=== PATIENT | male | born 1995 | race Two or more races ===

== ENCOUNTER 2025-01-01 15:59 | Inpatient (IN) | payer MEDICAID ==
[~2025-01-01] VITALS: Ht 175.3 cm; Wt 101.1 kg
[2025-01-01 16:48] LABS: Basophils # (auto) 0 10 ^3/uL (0-0.2); Basophils % (auto) 0.3 % (0.0-2.0); Eosinophils # (auto) 0.1 10 ^3/uL (0-0.8); Eosinophils % (auto) 0.9 % (0.0-7.0); Hematocrit 44.1 % (41.0-53.0); Hemoglobin 15.3 g/dL (13.5-17.5); Lymphocytes % (auto) 17.9 % (10.0-50.0); Mean Corpuscular Hgb Conc. 34.7 g/dL (32.0-36.0); Mean Corpuscular Volume 83.5 fL (80.0-100.0); Monocytes # (auto) 0.3 10 ^3/uL (0-1.3); Monocytes % (auto) 2.4 % (0.0-12.0); Neutrophils # (auto) 8.9 10 ^3/uL (1.6-8.6); Neutrophils % (auto) 78.5 % (37.0-80.0); Nucleated Red Blood Cells % 0.1 %; Platelet Count (auto) 364 10^3/uL (140-450); Red Blood Cells 5.28 10^6/uL (4.5-5.90); Red Cell Distribution Width 13.2 % (11.8-14.3); White Blood Cell 11.3 10^3/uL (4.4-10.8)
[2025-01-01 16:54] LABS: Chloride 105 mmol/L (98-107); Potassium 4.1 mmol/L (3.5-5.1); Sodium 141 mmol/L (136-145)
[2025-01-01 16:55] LABS: Anion Gap 11 (5-15); Carbon Dioxide 25 mmol/L (20-31)
[2025-01-01 16:56] LABS: Calcium 10.4 mg/dL (8.7-10.4)
[2025-01-01] MEDS: HYDROcodone-ACET 10/325MG TAB PO ONE (16:56)
[2025-01-01] MEDS: KETOROLAC TROMETH 60MG/2ML VIAL IM ONE (16:57)
--- NOTE | 2025-01-01 16:57 | ED.PDOC ---
General HPI Comments 29 year old male presents to the ED with a chief complaint of RT flank pain onset 1 day. Patient states he began expereincing RT flank pain as well as nausea, vomiting for the past day. PMHx kidney stones. Denies chest pain, shortness of breath, fever, chills, hematemesis, dysuria, hematuria. No other symptoms or modifying factors present at this time. Patient was hypertensive at arrival. Chief Complaint: Flank Pain Time Seen by MD: 16:45 Primary Care Provider: NONE Reviewed notes: Nurses Notes, Medications, Allergies Allergies: Coded Allergies: NO KNOWN ALLERGIES (Unverified , 07/09/15) Information Source: Patient Mode of Arrival: Ambulatory Severity: Moderate Timing: Days Duration: Since onset Prehospital treatment: None Onset: Spontaneous History of: Kidney stone Location: Abdomen, (R) Flank Penile discharge: None Modifying factors: None associated signs and symptoms: Nausea, Vomiting, Flank Pain Past Medical History PAST MEDICAL HISTORY: Kidney Stones Surgical History: Denies all surgeries Family History Family History: Reviewed,noncontributory to illness, No family hx of Cancer, No family hx of DM, No family hx of Heart jami, No family hx of HTN, No family hx ofKidney jami, No family hx of Liver jami, No family hx of Lung jami, No family hx of Stroke Social History Smoker: Non-Smoker Alcohol: Denies ETOH Use Drugs: Denies Drug Use Lives In: Home Constitutional: denies: chills, diaphoresis, fatigue, fever, malaise, sweats, weakness, others EENTM: denies: blurred vision, double vision, ear bleeding, ear discharge, ear drainage, ear pain, ear ringing, eye pain, eye redness, hearing loss, mouth pain, mouth swelling, nasal discharge, nose bleeding, nose congestion, nose pain, photophobia, tearing, throat pain, throat swelling, voice changes, others Respiratory: denies: cough, hemoptysis, orthopnea, SOB at rest, shortness of breath, SOB with excertion, stridor, wheezing, others Cardiovascular: denies: chest pain, dizzy spells, diaphoresis, Dyspnea on exertion, edema, irregular heart beat, left arm pain, lightheadedness, palpitations, PND, syncope, others Gastrointestinal: reports: abdominal pain, nausea, vomiting; denies: abdomen distended, blood streaked bowels, constipated, diarrhea, dysphagia, difficulty swallowing, hematemesis, melena, poor appetite, poor fluid intake, rectal bleeding, rectal pain, others Genitourinary: reports: flank pain; denies: burning, dysuria, frequency, hematuria, incontinence, penile discharge, penile sore, pain, testicle pain, testicle swelling, urgency, others Neurological: denies: dizziness, fainting, headache, left sided numbness, left sided weakness, numbness, paresthesia, pre-existing deficit, right sided numbness, right sided weakness, seizure, speech problems, tingling, tremors, weakness, others Musculoskeletal: denies: back pain, gout, joint pain, joint swelling, muscle pain, muscle stiffness, neck pain, others Integumetry: denies: bruises, change in color, change in hair/nails, dryness, laceration, lesions, lumps, rash, wounds, others Allergic/Immunocompromised: denies: Difficulty Healing, Frequent Infections, Hives, Itching, others Hematologic/Lymphatic: denies: anemia, blood clots, easy bleeding, easy bruising, swollen glands, others Endocrine: denies: excessive hunger, excessive sweating, excessive thirst, excessive urination, flushing, intolerance to cold, intolerance to heat, unexplained weight gain, unexplained weight loss, others Psychiatric: denies: anxiety, bipolar disorder, depression, hopeless, panic disorder, schizophrenia, sleepless, suicidal, others All Other Systems: Reviewed and Negative Physical Exam General Appearance: Moderate Distress (Patient was in moderate distress at time of evaluation due to right-sided flank and abdominal pain concerns.), Normal HEENT: Normal ENT Inspection, Pharynx Normal, TMs Normal Neck: Full Range of Motion, Non-Tender, Normal, Normal Inspection Respiratory: Chest Non-Tender, Lungs Clear, No Accessory Muscle Use, No Respiratory Distress, Normal Breath Sounds Cardiovascular: No Edema, No JVD, No Murmur, No Gallop, Normal Peripheral Pulses, Regular Rate/Rhythm Breast Exam: Deferred Gastrointestinal: No Pulsatile Mass, Normal Bowel Sounds, Other (Right-sided flank pain extending into the right lower abdomen. No additional pain on palpation. No signs of trauma.) Genitalia: Deferred Pelvic: Deferred Rectal: Deferred Extremities: No calf tenderness, Normal capillary refill, Normal inspection, Normal range of motion, Non-tender, No pedal edema Musculoskeletal : Apperance: Normal Neurologic: Alert, No Motor Deficits, Normal Affect, Normal Mood, No Sensory Deficits Cerebellar Function: Normal Reflexes: Normal Skin: Dry, Normal Color, Warm Lymphatic: No Adenopathy Was a procedure done? Was a procedure done?: No Differential Diagnosis Kidney stone (Female): Other (Cholelithiasis, occlusive kidney stone, kidney stone, UTI, pyelonephritis, musculoskeletal strain) X-Ray, Labs, Meds, VS Vital Signs Date Time Temp Pulse Resp B/P (MAP) Pulse Ox O2 Delivery O2 Flow Rate FiO2 01/01/25 17:04 74 19 96 Room Air* 0 21 01/01/25 16:18 97.9 94 19 168/126 (140) 100 97.9 Lab Test 01/01/25 17:00 01/01/25 16:32 Range/Units Urine Color Yellow Yellow Urine Clarity Clear Clear Urine pH 5.5 5.0-9.0 Urine Specific [place] 1.021 1.001-1.035 Urine Protein Trace H Negative Urine Ketones Trace Negative Urine Blood 3+ H Negative /uL Urine Nitrite Negative Negative Urine Bilirubin Negative Negative Urine Urobilinogen Normal Negative mg/dL Urine Leukocyte Esterase Negative Negative /uL Urine RBC 486 0 - 3 /hpf Urine Microscopic WBC 4 H 0-3 /HPF Urine Squamous Epithelial Cells Few <5 /hpf Urine Bacteria None seen None Seen /hpf Urine Mucus Few None Seen Urine Glucose Normal Normal mg/dL White Blood Count 11.3 H 4.4-10.8 10^3/uL Red Blood Count 5.28 4.5-5.90 10^6/uL Hemoglobin 15.3 13.5-17.5 g/dL Hematocrit 44.1 41.0-53.0 % Mean Corpuscular Volume 83.5 80.0-100.0 fL Mean Corpuscular Hemoglobin 29.0 28.0-32.0 pg Mean Corpuscular Hemoglobin Concent 34.7 32.0-36.0 g/dL Red Cell Distribution Width 13.2 11.8-14.3 % Platelet Count 364 140-450 10^3/uL Mean Platelet Volume 7.0 6.9-10.8 fL Neutrophils (%) (Auto) 78.5 37.0-80.0 % Lymphocytes (%) (Auto) 17.9 10.0-50.0 % Monocytes (%) (Auto) 2.4 0.0-12.0 % Eosinophils (%) (Auto) 0.9 0.0-7.0 % Basophils (%) (Auto) 0.3 0.0-2.0 % Neutrophils # (Auto) 8.9 H 1.6-8.6 10 ^3/uL Lymphocytes # (Auto) 2.0 0.4-5.4 10 ^3/uL Monocytes # (Auto) 0.3 0-1.3 10 ^3/uL Eosinophils # (Auto) 0.1 0-0.8 10 ^3/uL Basophils # (Auto) 0 0-0.2 10 ^3/uL Nucleated Red Blood Cells 0.1 % Sodium Level 141 136-145 mmol/L Potassium Level 4.1 3.5-5.1 mmol/L Chloride Level 105 98-107 mmol/L Carbon Dioxide Level 25 20-31 mmol/L Anion Gap 11 5-15 Blood Urea Nitrogen 15 9-23 mg/dL Creatinine 1.25 0.700-1.30 mg/dL Glomerular Filtration Rate Calc 80 >90 mL/min BUN/Creatinine Ratio 12.0 10.0-20.0 Serum Glucose 146 H 74-106 mg/dL Calcium Level 10.4 8.7-10.4 mg/dL Current Medications Medications (Trade) Dose Ordered Sig/Vic Route Start Time Stop Time Status Last Admin Ketorolac Tromethamine (Toradol Injection) 30 mg ONCE ONCE IM 01/01/25 16:15 01/01/25 16:16 DC 01/01/25 16:57 Acetaminophen/ Hydrocodone Bitart (Dickens 10/325MG Tab) 1 tab ONCE ONCE PO 01/01/25 16:15 01/01/25 16:16 DC 01/01/25 16:56 X-Ray, Labs, Meds, VS Comment All studies performed the ED were evaluated by me personally. Urinalysis was unremarkable for any urinary tract infection signs, but had a significant RBC deposition. CT of the abdomen and pelvis revealed a djoc-pv-arjfyvci right hydronephrosis and hydroureter with an obstructing calculi at the right ureterovesicular junction measuring up to 4 mm. Patient will be admitted for pain management as well as urology consultation. Time of 1ST Reevaluation: 17:29 Reevaluation 1ST: Improved Consultation: PCP, Urology Patient Education/Counseling: Diagnosis, Treatment, Prognosis Family Education/Counseling: Diagnosis, Treatment, No Family Present Additional Information [place] [address] Ph: [phone] DIAGNOSTIC IMAGING Diagnostic Imaging Report : [id number] Signed PATIENT: RENETTA MIRANDA JR ACCT: [id number] UNIT: [id number] : 1995 LOC: ER ROOM / BED: / AGE / SEX: 29 / M ADM STATUS: REG ER SERVICE [id number] ORDERING PHYSICIAN: YONAS BRAN PAC PROCEDURE(s): ABPL - CT AB PEL WO CON-NO ORAL OR IV REASON: Right-sided flank/abdominal pain ORDER NUMBER(s): [id number], ACCESSION NUMBER(s): [id number] Exam: CT CT AB PEL WO CON-NO ORAL OR IV History: Right-sided flank/abdominal pain Comparison Study: None Technique: Multidetector spiral CT of the abdomen and pelvis was performed fro m lung bases to pubic symphysis. Imaging was performed without IV contrast. Axial, coronal and sagittal multiplanar reformats were obtained from the axial data set by the technologist. Radiation dose : Abdomen/Pelvis: CTDIvol 13 mGy, DLP 668 mGy*cm. Findings: Evaluation of solid organs is limited due to lack of intravenous contrast use. Lung Bases: No acute or significant lung base finding. Normal heart size. No pleural or pericardial effusion. Liver: The liver is normal in size. No focal lesions. Gallbladder and biliary Tree: Unremarkable Spleen: Unremarkable Pancreas: The pancreas is grossly normal in appearance. Adrenal Glands: Unremarkable Kidneys: Lofs-tj-bumxjlfq right hydronephrosis and hydroureter with an obstructing calculus at the right ureterovesicular junction measuring up to 4 mm. Other nonobstructing right renal calculus measuring up to 4 mm. Punctate left renal calculus. No left hydronephrosis. Bladder: Grossly unremarkable for degree of distention. Bowel: The stomach is grossly normal in appearance. Small bowel and colon are normal in caliber and distribution. Normal appendix is visualized in the right lower quadrant without findings of appendicitis. Ascites: Absent Lymphadenopathy: No mesenteric, retroperitoneal or periportal lymphadenopathy. Abdominal wall and Mesentery: Unremarkable. Vasculature: The visualized abdominal aorta is normal in size and caliber. Evaluation of abdominal and pelvic vessels is limited due to lack of intravenous contrast. Pelvic Organs: Unremarkable Musculoskeletal: No aggressive focal bony lesions, acute fractures or dislocation. IMPRESSION: 1. Vwbb-gw-zkhkvygz right hydronephrosis and hydroureter with an obstructing calculus at the right ureterovesicular junction measuring up to 4 mm. Other nonobstructive right renal calculus. Punctate nonobstructing left renal calculus. Urology evaluation is recommended. Radiation optimization: All CT scans at this facility use at least one of these dose optimization techniques: Automated exposure control mA and/or kV adjustment per patient size (includes targeted exams where dose is matched to clinical indication) or iterative reconstruction. HS:Y ATED BY: ALVARO GAN MD DICTATED DATE/TIME: 01/01/251701 SIGNED BY: ALVARO GAN MD SIGNED DATE/TIME: 01/01/251701 CC: Departure 1 Departure Time of Disposition: 17:29 Impression: Primary Impression: Kidney stone Additional Impression: Hydronephrosis concurrent with and due to calculi of kidney and ureter Disposition: ADMITTED INPATIENT Condition: Stable Discharged With: Self, Spouse Critical Care Note Critical Care Time?: No Stability Stability form required: No Heart Score Heart Score: Heart Score Response (Comments) Value History N/A 0 EKG N/A 0 Age N/A 0 Risk Factors N/A 0 Troponin N/A 0 Total 0 I personally scribed for YONAS BRAN PAC ([email or web address]) on 01/01/25 at 16:57. Elect ronically submitted by Bethanie Roman ([email or web address]). I personally scribed for YONAS BRAN PAC ([email or web address]) on 01/01/25 at 17:12. Electronically submitted by Bethanie Roman ([email or web address]). YONAS BRAN PAC January 01, 2025 16:57
[2025-01-01 17:00] LABS: Blood Urea Nitrogen 15 mg/dL (9-23)
[2025-01-01 17:01] LABS: Glucose 146 mg/dL (74-106)
[2025-01-01 17:03] LABS: Urine Bacteria None Seen /hpf (None Seen)
[2025-01-01 17:04] VITALS: PULSE 74; RESP 19; O2SAT 96
--- NOTE | 2025-01-01 17:04 | DVH ---
Exam: CT CT AB PEL WO CON-NO ORAL OR IV History: Right-sided flank/abdominal pain Comparison Study: None Technique: Multidetector spiral CT of the abdomen and pelvis was performed from lung bases to pubic symphysis. Imaging was performed without IV contrast. Axial, coronal and sagittal multiplanar reform ats were obtained from the axial data set by the technologist. Radiation dose : Abdomen/Pelvis: CTDIvol 13 mGy, DLP 668 mGy*cm. Findings: Evaluation of solid organs is limited due to lack of intravenous contrast use. Lung Bases: No acute or significant lung base finding. Normal heart size. No pleural or pericardial effusion. Liver: The liver is normal in size. No focal lesions. Gallbladder and biliary Tree: Unremarkable Spleen: Unremarkable Pancreas: The pancreas is grossly normal in appearance. Adrenal Glands: Unremarkable Kidneys: Rchl-mc-vzggrbcp right hydronephrosis and hydroureter with an obstructing calculus at the ri ght ureterovesicular junction measuring up to 4 mm. Other nonobstructing right renal calculus measur ing up to 4 mm. Punctate left renal calculus. No left hydronephrosis. Bladder: Grossly unremarkable for degree of distention. Bowel: The stomach is grossly normal in appearance. Small bowel and colon are normal in caliber and d istribution. Normal appendix is visualized in the right lower quadrant without findings of appendicit is. Ascites: Absent Lymphadenopathy: No mesenteric, retroperitoneal or periportal lymphadenopathy. Abdominal wall and Mesentery: Unremarkable. Vasculature: The visualized abdominal aorta is normal in size and caliber. Evaluation of abdominal a nd pelvic vessels is limited due to lack of intravenous contrast. Pelvic Organs: Unremarkable Musculoskeletal: No aggressive focal bony lesions, acute fractures or dislocation. IMPRESSION: 1. Dfaj-cr-fcmznzsq right hydronephrosis and hydroureter with an obstructing calculus at the right ur eterovesicular junction measuring up to 4 mm. Other nonobstructive right renal calculus. Punctate no nobstructing left renal calculus. Urology evaluation is recommended. Radiation optimization: All CT scans at this facility use at least one of these dose optimization julieth hniques: Automated exposure control mA and/or kV adjustment per patient size (includes targeted exams where dose is matched to clinical indication) or iterative reconstruction. HS:Y
[2025-01-01 17:13] LABS: Urine Blood 3+ /uL (Negative); Urine Clarity Clear (Clear); Urine Color Yellow (Yellow); Urine Mucus FEW (None Seen); Urine Protein, UAD TRACE (Negative); Urine Specific Gravity 1.021 (1.001-1.035); Urine Squamous Epithelial Cell FEW /hpf (<5); Urine Urobilinogen Normal (Negative); Urine WBC 4 /HPF (0-3); Urine pH 5.5 (5.0-9.0)
[2025-01-01] MEDS: cloNIDine HCL 0.1 MG TAB PO ONE (17:30)
[2025-01-01] MEDS ORDERED: NITROGLYCERIN 0.4 MG SL TAB SL PRN (22:30)
[2025-01-01] MEDS ORDERED: MORPHINE SULFATE INJ 2 MG/ml SYRG IV PRN ×2 (22:30)
--- NOTE | 2025-01-01 22:58 | DVHHPRES ---
History of Present Illness Resident Creating Document: YING DAWN Reason for Visit: right flank pain History of Present Illness 29 year old male patient with no past medical history who presented to the emergency department with the chief complain of right flank pain that started today at 3 pm, progressively getting worse , the pain was described as stabbing pain that irradiates to the groin , very severe 10/10 and constant . He denied any other associated symptoms such as fever, diarrhea, chest pain or vomiting.Mc harsh and Omalley signs were negative. PMH: no past medical history PCP: Patient doesn't have a PCP social history: he has history of vaping but denies smoking cigarettes,he drinks alcohol ocassionally. denies using drugs. code status: full code medications at home: none CT abdomen showed: Yirf-lb-opatkged right hydronephrosis and hydroureter with an obstructing calculus at the right ureterovesical junction measuring up to 4 mm. Other nonobstructive right renal calculus. Punctate nonobstructing left renal calculus. Urology evaluation is recommended. Smoke: No ALCOHOL: none Drugs: None Lives: with Family Domestic Violence: Neg Review of Systems Review of Systems Constitutional: denies: chills, diaphoresis, fatigue, fever, malaise, sweats, weakness, others Respiratory: denies: cough, hemoptysis, orthopnea, SOB at rest, shortness of breath, SOB with excertion, stridor, wheezing, others Cardiovascular: denies: chest pain, dizzy spells, diaphoresis, Dyspnea on exertion, edema, irregular heart beat, left arm pain, lightheadedness Gastrointestinal: reports: abdominal pain, nausea, vomiting; denies: abdomen distended, blood streaked bowels, constipated, diarrhea, dysphagia, difficulty swallowing, hematemesis Genitourinary: reports: RIGHT SIDED FLANK PAIN; denies: burning, dysuria, frequency, hematuria, incontinence, penile discharge, penile sore, pain, testicle pain, testicle swelling, urgency, others Neurological: denies: dizziness, fainting, headache, left sided numbness, left sided weakness, numbness, paresthesia, pre-existing deficit, right sided numbness, right sided weakness Musculoskeletal: denies: back pain, gout, joint pain, joint swelling, muscle pain, muscle stiffness, neck pain, others Allergies: Coded Allergies: NO KNOWN ALLERGIES (Unverified , 07/09/15) Medications Current Medications Medications Dose Ordered Sig/Vic Route Start Time Stop Time Status Last Admin Dose Admin Sodium Chloride 1,000 ml @ 120 mls/hr Q8H20M IV 01/01/25 22:30 Morphine Sulfate 2 mg Q4HPRN PRN IV 01/01/25 22:30 Nitroglycerin 0.4 mg Q5MINP PRN SL 01/01/25 22:30 Morphine Sulfate 2 mg Q30M PRN IV 01/01/25 22:30 Exam Vital Signs Vital Signs Date Time Temp Pulse Resp B/P (MAP) Pulse Ox O2 Delivery O2 Flow Rate FiO2 01/01/25 20:14 98.6 67 18 141/93 (109) 97 98.6 01/01/25 17:04 Room Air* 0 21 Exam General Appearance: Moderate Distress due to right sided flank pain HEENT: Normal ENT Inspection, Pharynx Normal, TMs Normal Neck: Full Range of Motion, Non-Tender, Normal, Normal Inspection Respiratory: Chest Non-Tender, Lungs Clear, No Accessory Muscle Use, No Respiratory Distress, Normal Breath Sounds Cardiovascular: No Edema, No JVD, No Murmur, No Gallop, Normal Peripheral Puls es, Regular Rate/Rhythm Gastrointestinal: No Pulsatile Mass, Normal Bowel Sounds, Other (Right-sided flank pain extending into the right lower abdomen. No additional pain on palpation Extremities: No calf tenderness, Normal capillary refill, Normal inspection, Normal range of motion, Non-tender, No pedal edema Labs/Xrays Labs Test 01/01/25 17:00 01/01/25 16:32 Range/Units Urine Color Yellow Yellow Urine Clarity Clear Clear Urine pH 5.5 5.0-9.0 Urine Specific [place] 1.021 1.001-1.035 Urine Protein Trace H Negative Urine Ketones Trace Negative Urine Blood 3+ H Negative /uL Urine Nitrite Negative Negative Urine Bilirubin Negative Negative Urine Urobilinogen Normal Negative mg/dL Urine Leukocyte Esterase Negative Negative /uL Urine RBC 486 0 - 3 /hpf Urine Microscopic WBC 4 H 0-3 /HPF Urine Squamous Epithelial Cells Few <5 /hpf Urine Bacteria None seen None Seen /hpf Urine Mucus Few None Seen Urine Glucose Normal Normal mg/dL White Blood Count 11.3 H 4.4-10.8 10^3/uL Red Blood Count 5.28 4.5-5.90 10^6/uL Hemoglobin 15.3 13.5-17.5 g/dL Hematocrit 44.1 41.0-53.0 % Mean Corpuscular Volume 83.5 80.0-100.0 fL Mean Corpuscular Hemoglobin 29.0 28.0-32.0 pg Mean Corpuscular Hemoglobin Concent 34.7 32.0-36.0 g/dL Red Cell Distribution Width 13.2 11.8-14.3 % Platelet Count 364 140-450 10^3/uL Mean Platelet Volume 7.0 6.9-10.8 fL Neutrophils (%) (Auto) 78.5 37.0-80.0 % Lymphocytes (%) (Auto) 17.9 10.0-50.0 % Monocytes (%) (Auto) 2.4 0.0-12.0 % Eosinophils (%) (Auto) 0.9 0.0-7.0 % Basophils (%) (Auto) 0.3 0.0-2.0 % Neutrophils # (Auto) 8.9 H 1.6-8.6 10 ^3/uL Lymphocytes # (Auto) 2.0 0.4-5.4 10 ^3/uL Monocytes # (Auto) 0.3 0-1.3 10 ^3/uL Eosinophils # (Auto) 0.1 0-0.8 10 ^3/uL Basophils # (Auto) 0 0-0.2 10 ^3/uL Nucleated Red Blood Cells 0.1 % Sodium Level 141 136-145 mmol/L Potassium Level 4.1 3.5-5.1 mmol/L Chloride Level 105 98-107 mmol/L Carbon Dioxide Level 25 20-31 mmol/L Anion Gap 11 5-15 Blood Urea Nitrogen 15 9-23 mg/dL Creatinine 1.25 0.700-1.30 mg/dL Glomerular Filtration Rate Calc 80 >90 mL/min BUN/Creatinine Ratio 12.0 10.0-20.0 Serum Glucose 146 H 74-106 mg/dL Calcium Level 10.4 8.7-10.4 mg/dL Assessment/Plan Assessment/Plan Right flank pain likely due to obstructive uropathy based on CT abd findings Hematuria likely non glomerular due to obstructive uropathy Cwwz-ax-erwleiys right hydronephrosis and hydroureter with an obstructing calculus at the right ureterovesical junction measuring up to 4 mm Nonobstructive right renal calculus Nonobstructing left renal calculus type 1 obesity Dyslipidemia Plan: admit to med-surg urology consult IV fluids tamsulosin 0.6 to try to pass the stone ceftriaxone IV Mannitol 12.5 mg over 5 minutes protocol urine culture UDS lifestyle modification counseling increase physical activity and dietary changes case discussed with code status: full code Plan discussed with: Patient My Orders Orders - YING DAWN RESIDENT Procedure Category Date Status Time Admit ADMIT 01/01/25 Transmitted 22:27 Allergies LAQUITA 01/01/25 In Process 22:27 Code Status CODE 01/01/25 Transmitted 22:27 Sodium Chloride 0.9% PHA 01/01/25 In Process 22:30 Complete Blood Count LAB 01/02/25 Verified 04:00 Comprehensive LAB 01/02/25 Verified Metabolic Panel 04:00 Npo (Nothing By DIET 01/02/25 Transmitted Mouth) Diet Breakfast Condition: Unstable LAQUITA 01/01/25 In Process 22:27 Morphine Sulfate PHA 01/01/25 In Process Injection 22:30 Nitroglycerin PHA 01/01/25 In Process Sublingual (Ntrostat 22:30 Morphine Sulfate PHA 01/01/25 In Process Injection 22:30 Oxygen By Nasal RT 01/01/25 Transmitted Cannula 22:27 Stat Ekg For Chest LAQUITA 01/01/25 In Process Pain 22:27 Notify Of Changes LAQUITA 01/01/25 In Process From Base 22:27 Chip Unloader For LAQUITA 01/01/25 In Process 24 Hours 22:27 Emergency Dysrhythmia LAQUITA 01/01/25 In Process Protocol 22:27 Rhythm Strips Once LAQUITA 01/01/25 In Process Every Shift 22:27 YING DAWN RESIDENT January 01, 2025 22:58
[2025-01-01 23:22] VITALS: BP 128/84; PULSE 67; PULSE 82; RESP 17; RESP 18; TEMP 98; O2SAT 97; O2SAT 98
[2025-01-01] MEDS: SODIUM CHLORIDE 0.9% 1,000 ML IV SCH (23:29)
[2025-01-01 23:34] LABS: Triglycerides 131 mg/dL (< 150)
[2025-01-01 23:38] LABS: Cholesterol 237 mg/dL (< 200); HDL Cholesterol 38 mg/dL (40-59); LDL Cholesterol 180 mg/dL (< 100)
[2025-01-01] MEDS: TAMSULOSIN HYDROCHLORIDE 0.4 MG CAP PO ONE (23:47)
[2025-01-02] VITALS (7 sets, daily range): BP systolic 96–141; BP diastolic 63–93; PULSE 17–71; RESP 16–97; TEMP 97.6–97.9; O2SAT 97–100
[2025-01-02 00:26] LABS: Amphetamine Screen, Urine Neg (NEGATIVE); Barbiturate Scree,Urine Neg (NEGATIVE); Benzodiazephine Screen, Urine Neg (NEGATIVE); Cannabinoid Screen, Urine Neg (NEGATIVE); Cocaine Screen, Urine Neg (NEGATIVE); Opiate Scree,Urine Neg (NEGATIVE); Phencyclidine Screen, Urine Neg (NEGATIVE)
[2025-01-02 02:40] LABS: Urine WBC 1 /HPF (0-3)
[2025-01-02 02:41] LABS: Urine Mucus FEW (None Seen)
[2025-01-02 02:42] LABS: Urine Bacteria NONE SEEN /hpf (None Seen); Urine Squamous Epithelial Cell None Seen /hpf (<5)
[2025-01-02 03:36] LABS: Basophils # (auto) 0 10 ^3/uL (0-0.2); Basophils % (auto) 0.5 % (0.0-2.0); Eosinophils # (auto) 0.3 10 ^3/uL (0-0.8); Eosinophils % (auto) 3.2 % (0.0-7.0); Hematocrit 41.4 % (41.0-53.0); Hemoglobin 13.9 g/dL (13.5-17.5); Lymphocytes # (auto) 4.1 10 ^3/uL (0.4-5.4); Lymphocytes % (auto) 52.8 % (10.0-50.0); Mean Corpuscular Hemoglobin 28.2 pg (28.0-32.0); Mean Corpuscular Hgb Conc. 33.6 g/dL (32.0-36.0); Mean Corpuscular Volume 83.9 fL (80.0-100.0); Monocytes # (auto) 0.6 10 ^3/uL (0-1.3); Monocytes % (auto) 7.8 % (0.0-12.0); Neutrophils # (auto) 2.8 10 ^3/uL (1.6-8.6); Neutrophils % (auto) 35.7 % (37.0-80.0); Nucleated Red Blood Cells % 0.2 %; Platelet Count (auto) 350 10^3/uL (140-450); Red Blood Cells 4.93 10^6/uL (4.5-5.90); Red Cell Distribution Width 13.3 % (11.8-14.3); White Blood Cell 7.8 10^3/uL (4.4-10.8)
[2025-01-02 03:52] LABS: Alanine Aminotransferase 28 U/L (7-40); Albumin 4.6 g/dL (3.2-4.8); Alkaline Phosphatase 86 U/L (46-116); Anion Gap 8 (5-15); Aspartate Aminotransferase 16 U/L (13-40); Blood Urea Nitrogen 13 mg/dL (9-23); Calcium 9.1 mg/dL (8.7-10.4); Carbon Dioxide 26 mmol/L (20-31); Chloride 104 mmol/L (98-107); Glucose 106 mg/dL (74-106); Potassium 3.8 mmol/L (3.5-5.1); Sodium 138 mmol/L (136-145); Total Protein 7.2 g/dL (5.7-8.2)
[2025-01-02 03:53] LABS: Bilirubin, Total 1.1 mg/dL (0.2-1.0)
[2025-01-02] MEDS: MANNITOL FTV 25% 12.5 GM/50 ML 50 ML IV ONE (07:00)
[2025-01-02] MEDS ORDERED: HYDROcodone-ACET 5/325MG TAB PO PRN (09:45)
[2025-01-02] MEDS: TAMSULOSIN HYDROCHLORIDE 0.4 MG CAP PO SCH (17:08)
--- NOTE | 2025-01-02 17:09 | DVHPNRES ---
Progress Note Date Seen: January 02, 2025 Resident Creating Document: KEILA JIMÉNEZCHAYCRISTINO RESIDENT Medical Necessity Reason Pt with a Central, PICC or Fol: No Subjective Review of Systems HPI Patient is a 29-year-old male with no significant past medical history presented to the ER with a chief complaint of right flank pain this started around 3:00 p.m. yesterday with the pain getting progressively worse, described as a sharp and colicky in character and radiating to the groin, severe in intensity. Patient reported nausea but no vomiting and denied any fever, chills, shortness of breath, chest pain. Patient reported that he had kidney stone about 5 years ago for which he went to the hospital and was given a funnel and the stone passed. Past medical history: None Past surgical history: None Social history: Patient vapes but denies smoking cigarettes, drinks occasionally and denies any drug use Home medications: None Review of systems Patient seen and examined at the bedside Reports that the right flank pain has improved Objective vital signs Vital Sign Date Time Temp Pulse Resp B/P (MAP) Pulse Ox O2 Delivery O2 Flow Rate FiO2 01/02/25 13:00 97.7 65 17 127/93 (104) 99 97.7 01/02/25 08:00 Room Air* 0 21 Total Intake and Output 01/01/25 01/01/25 01/02/25 15:00 23:00 07:00 Intake Total 360 ml Balance 360 ml medications Current Medications Medications Dose Ordered Sig/Vic Route Start Time Stop Time Status Last Admin Dose Admin Sodium Chloride 1,000 ml @ 120 mls/hr Q8H20M IV 01/01/25 22:30 01/02/25 15:10 120 MLS/HR Morphine Sulfate 2 mg Q4HPRN PRN IV 01/01/25 22:30 Tamsulosin HCl 0.4 mg QPM PO 01/02/25 18:00 Acetaminophen/ Hydrocodone Bitart 1 tab Q6HPRN PRN PO 01/02/25 09:45 Examination Constitutional: Patient is alert and oriented to time, place and person and does not appear to be any acute distress Gen - no pallor, no icterus, no cyanosis, no clubbing, no LAD, no edema . Skin - Patients skin is warm and dry.. HEENT - normocephalic, atraumatic, moist mucous membranes. Neck - full ROM, no LAD, JVP waveform is not seen. Pulmonary - B/L vesicular breath sounds. no crackles , no wheezing, no stridor. cardiovascular - normal S1,S2 heard. no murmurs heard. peripheral pulses normal radial 2+, pedal 2+. capillary refill normal <2 secs. GI - soft, nontender abdomen. no hepatospleenomegaly. Bowel sounds normoactive Neurological - Patient is A/O X 3 . Bilateral upper extremity strength 5/5, bilateral lower extremity strength 5/5, no facial droop, normal speech, no tremor, no sensory deficiets. laboratory and microbiology Laboratory Tests 01/02/25 03:17 Test 01/02/25 03:17 Range/Units Serum Glucose 106 74-106 mg/dL Problem List/Assessment/Plan Problem List/Assessment/Plan Right flank pain likely due to UVJ stone Right hydronephrosis Nonobstructive right and left renal calculus Obesity Dyslipidemia - CT abdomen pelvis without contrast shows ryyp-vm-[id number] right hydronephrosis and hydroureter with the obstructing calculus at the right UVJ measuring up to 4 mm, nonobstructive right renal calculus, nonobstructive left renal calculus Plan - IV fluids - pain management - tamsulosin - urology consultation Goals of care discussed with the patient and his for over 25 minutes. Full code Plan discussed with Plan discussed with: Patient, Spouse My Orders My Orders Orders - RUSTY JIMÉNEZ Procedure Category Date Status Time Hydrocodone-Acet PHA 01/02/25 In Process 5/325mg Tab (Julian 09:45 Regular Diet DIET 01/02/25 Transmitted Lunch Date of Service: January 02, 2025 Billing Provider: SYD HOBSON MD Common Visit Codes: [id number] INP/OBS CARE(HIGH) RUSYT JIMÉNEZ RESIDENT January 02, 2025 17:09 SYD HOBSON MD January 02, 2025 21:53
[2025-01-02] MEDS ORDERED: CIPROFLOXACIN HYDROCHLORIDE 250 MG TAB PO SCH (22:00)
[2025-01-02] MEDS ORDERED: CIPROFLOXACIN HYDROCHLORIDE 250 MG TAB PO ONE (22:15)
[2025-01-03 05:00] VITALS: BP 115/71; PULSE 60; RESP 18; TEMP 98; O2SAT 97
[2025-01-03] MEDS ORDERED: CIPROFLOXACIN HYDROCHLORIDE 250 MG TAB PO SCH (06:00)
[2025-01-03 06:12] LABS: Basophils # (auto) 0.1 10 ^3/uL (0-0.2); Basophils % (auto) 0.8 % (0.0-2.0); Eosinophils # (auto) 0.2 10 ^3/uL (0-0.8); Eosinophils % (auto) 3.5 % (0.0-7.0); Hematocrit 42.9 % (41.0-53.0); Hemoglobin 14.5 g/dL (13.5-17.5); Lymphocytes # (auto) 2.9 10 ^3/uL (0.4-5.4); Lymphocytes % (auto) 46.6 % (10.0-50.0); Mean Corpuscular Hemoglobin 28.8 pg (28.0-32.0); Mean Corpuscular Hgb Conc. 33.7 g/dL (32.0-36.0); Mean Corpuscular Volume 85.4 fL (80.0-100.0); Monocytes # (auto) 0.4 10 ^3/uL (0-1.3); Neutrophils # (auto) 2.7 10 ^3/uL (1.6-8.6); Neutrophils % (auto) 42.1 % (37.0-80.0); Nucleated Red Blood Cells % 0.1 %; Platelet Count (auto) 224 10^3/uL (140-450); Red Blood Cells 5.03 10^6/uL (4.5-5.90); Red Cell Distribution Width 13.3 % (11.8-14.3); White Blood Cell 6.3 10^3/uL (4.4-10.8)
[2025-01-03] MEDS: CIPROFLOXACIN HCL 500 MG TAB PO SCH (06:19)
[2025-01-03 06:23] LABS: Potassium 4.5 mmol/L (3.5-5.1); Sodium 142 mmol/L (136-145)
[2025-01-03 06:24] LABS: Anion Gap 7 (5-15); Calcium 9.2 mg/dL (8.7-10.4); Carbon Dioxide 25 mmol/L (20-31)
[2025-01-03 06:26] LABS: Chloride 110 mmol/L (98-107)
[2025-01-03 06:29] LABS: BUN/Creatinine Ratio 15.2 (10.0-20.0); Blood Urea Nitrogen 16 mg/dL (9-23); Glucose 101 mg/dL (74-106)
[2025-01-03 08:38] VITALS: BP 148/98; PULSE 67; RESP 20; TEMP 97.9; O2SAT 100
--- NOTE | 2025-01-03 09:46 | DVHINCON2 ---
Date of service: January 03, 2025 Referring Physician Hospitalist Reason for Consultation ureteral stone History of Present Illness History Source: Patient, RN Notes Exam Limitations: No limitations HPI 29 year old male patient with no past medical history who presented to the emergency department with the chief complain of right flank pain that started today at 3 pm, progressively getting worse , the pain was described as stabbing pain that irradiates to the groin , very severe 10/10 and constant . He denied any other associated symptoms such as fever, diarrhea, chest pain or vomiting.Mc harsh and Omalley signs were negative. PMH: no past medical history PCP: Patient doesn't have a PCP social history: he has history of vaping but denies smoking cigarettes,he drinks alcohol ocassionally. denies using drugs. code status: full code medications at home: none CT abdomen showed: Ymkg-fq-ygubcnmg right hydronephrosis and hydroureter with an obstructing calculus at the right ureterovesical junction measuring up to 4 mm. Other nonobstructive right renal calculus. Punctate nonobstructing left renal calculus. Urology evaluation is recommended. Home Meds No Active Prescriptions or Reported Meds Past Medical History Patient Family History: Diabetes mellitus G8 FATHER H&P Exam Vital Signs Vital Signs Date Time Temp Pulse Resp B/P (MAP) Pulse Ox O2 Delivery O2 Flow Rate FiO2 01/03/25 08:38 97.9 67 20 148/98 (115) 100 97.9 01/03/25 08:00 Room Air* 0 21 Labs/Xrays [place] [address] Ph: [phone] DIAGNOSTIC IMAGING Diagnostic Imaging Report : [id number] Signed PATIENT: RENETTA MIRANDA JR ACCT: [id number] UNIT: [id number] : 1995 LOC: ER ROOM / BED: / AGE / SEX: 29 / M ADM STATUS: REG ER SERVICE 1613 ORDERING PHYSICIAN: YONAS BRAN PAC PROCEDURE(s): ABPL - CT AB PEL WO CON-NO ORAL OR IV REASON: Right-sided flank/abdominal pain ORDER NUMBER(s): [id number], ACCESSION NUMBER(s): [id number] Exam: CT CT AB PEL WO CON-NO ORAL OR IV History: Right-sided flank/abdominal pain Comparison Study: None Technique: Multidetector spiral CT of the abdomen and pelvis was performed from lung bases to pubic symphysis. Imaging was performed without IV contrast. Axial, coronal and sagittal multiplanar reformats were obtained from the axial data set by the technologist. Radiation dose : Abdomen/Pelvis: CTDIvol 13 mGy, DLP 668 mGy*cm. Findings: Evaluation of solid organs is limited due to lack of intravenous contrast use. Lung Bases: No acute or significant lung base finding. Normal heart size. No pleural or pericardial effusion. Liver: The liver is normal in size. No focal lesions. Gallbladder and biliary Tree: Unremarkable Spleen: Unremarkable Pancreas: The pancreas is grossly normal in appearance. Adrenal Glands: Unremarkable Kidneys: Nwor-dg-swciwssf right hydronephrosis and hydroureter with an obstructing calculus at the right ureterovesicular junction measuring up to 4 mm. Other nonobstructing right renal calculus measuring up to 4 mm. Punctate left renal calculus. No left hydronephrosis. Bladder: Grossly unremarkable for degree of distention. Bowel: The stomach is grossly normal in appearance. Small bowel and colon are normal in caliber and distribution. Normal appendix is visualized in the right lower quadrant without findings of appendicitis. Ascites: Absent Lymphadenopathy: No mesenteric, retroperitoneal or periportal lymphadenopathy. Abdominal wall and Mesentery: Unremarkable. Vasculature: The visualized abdominal aorta is normal in size and caliber. Evaluation of abdominal and pelvic vessels is limited due to lack of intravenous contrast. Pelvic Organs: Unremarkable Musculoskeletal: No aggressive focal bony lesions, acute fractures or dislocation. IMPRESSION: 1. Nhsc-is-upkzvjhc right hydronephrosis and hydroureter with an obstructing calculus at the right ureterovesicular junction measuring up to 4 mm. Other nonobstructive right renal calculus. Punctate nonobstructing left renal calculus. Urology evaluation is recommended. Radiation optimization: All CT scans at this facility use at least one of these dose optimization techniques: Automated exposure control mA and/or kV adjustment per patient size (includes targeted exams where dose is matched to clinical indication) or iterative reconstruction. HS:Y ATED BY: ALVARO GAN MD DICTATED DATE/TIME: 01/01/25 1702 SIGNED BY: ALVARO GAN MD SIGNED DATE/TIME: 01/01/251701 CC: Labs Test 01/03/25 05:56 01/02/25 03:17 01/02/25 01:30 01/02/25 00:02 Range/Units White Blood Count 6.3 4.4-10.8 10^3/uL Red Blood Count 5.03 4.5-5.90 10^6/uL Hemoglobin 14.5 13.5-17.5 g/dL Hematocrit 42.9 41.0-53.0 % Mean Corpuscular Volume 85.4 80.0-100.0 fL Mean Corpuscular Hemoglobin 28.8 28.0-32.0 pg Mean Corpuscular Hemoglobin Concent 33.7 32.0-36.0 g/dL Red Cell Distribution Width 13.3 11.8-14.3 % Platelet Count 224 140-450 10^3/uL Mean Platelet Volume 7.9 6.9-10.8 fL Neutrophils (%) (Auto) 42.1 37.0-80.0 % Lymphocytes (%) (Auto) 46.6 10.0-50.0 % Monocytes (%) (Auto) 7.0 0.0-12.0 % Eosinophils (%) (Auto) 3.5 0.0-7.0 % Basophils (%) (Auto) 0.8 0.0-2.0 % Neutrophils # (Auto) 2.7 1.6-8.6 10 ^3/uL Lymphocytes # (Auto) 2.9 0.4-5.4 10 ^3/uL Monocytes # (Auto) 0.4 0-1.3 10 ^3/uL Eosinophils # (Auto) 0.2 0-0.8 10 ^3/uL Basophils # (Auto) 0.1 0-0.2 10 ^3/uL Nucleated Red Blood Cells 0.1 % Sodium Level 142 136-145 mmol/L Potassium Level 4.5 3.5-5.1 mmol/L Chloride Level 110 H 98-107 mmol/L Carbon Dioxide Level 25 20-31 mmol/L Anion Gap 7 5-15 Blood Urea Nitrogen 16 9-23 mg/dL Creatinine 1.05 0.700-1.30 mg/dL Glomerular Filtration Rate Calc 99 >90 mL/min BUN/Creatinine Ratio 15.2 10.0-20.0 Serum Glucose 101 74-106 mg/dL Calcium Level 9.2 8.7-10.4 mg/dL Total Bilirubin 1.1 H 0.2-1.0 mg/dL Aspartate Amino Transferase (AST) 16 13-40 U/L Alanine Aminotransferase (ALT) 28 7-40 U/L Alkaline Phosphatase 86 46-116 U/L Total Protein 7.2 5.7-8.2 g/dL Albumin 4.6 3.2-4.8 g/dL Urine RBC 2 0 - 3 /hpf Urine Microscopic WBC 1 0-3 /HPF Urine Squamous Epithelial Cells None seen <5 /hpf Urine Bacteria None seen None Seen /hpf Urine Mucus Few None Seen Urine Opiates Screen Neg NEGATIVE Urine Fentanyl Screen Neg NEGATIVE Urine Barbiturates Screen Neg NEGATIVE Urine Phencyclidine Screen Neg NEGATIVE Urine Amphetamines Screen Neg NEGATIVE Urine Benzodiazepines Screen Neg NEGATIVE Urine Cocaine Screen Neg NEGATIVE Urine Cannabinoids Screen Neg NEGATIVE Test 01/01/25 17:00 01/01/25 16:35 01/01/25 16:32 Range/Units Urine Color Yellow Yellow Urine Clarity Clear Clear Urine pH 5.5 5.0-9.0 Urine Specific [place] 1.021 1.001-1.035 Urine Protein Trace H Negative Urine Ketones Trace Negative Urine Blood 3+ H Negative /uL Urine Nitrite Negative Negative Urine Bilirubin Negative Negative Urine Urobilinogen Normal Negative mg/dL Urine Leukocyte Esterase Negative Negative /uL Urine Glucose Normal Normal mg/dL Vitamin D 25-Hydroxy 33.6 30.0-100 ng/mL Hemoglobin A1c 5.2 <5.7 % A1C Triglycerides Level 131 < 150 mg/dL Cholesterol Level 237 H < 200 mg/dL LDL Cholesterol 180 H < 100 mg/dL HDL Cholesterol 38 L 40-59 mg/dL Assessment/Plan Problem List: (1) Kidney stone (2) Hydronephrosis concurrent with and due to calculi of kidney and ureter Plan expulsive measures pain meds prn aggressive fluids strain urine outpt f/u 2 weeks december d/c when pain controlled from urology standpoint Plan discussed with: ELISEO Fagan NP January 03, 2025 09:46
[2025-01-03 12:35] VITALS: BP 138/88; PULSE 71; RESP 20; TEMP 98.1; O2SAT 96
--- NOTE | 2025-01-03 13:52 | DVHDS2 ---
Discharge Summary Date of Admission January 01, 2025 at 22:27 Date of Discharge: January 03, 2025 Admitting Diagnosis Right nephrolithiasis and hydronephrosis Labs/Diagnostic Data: Laboratory Results Test 01/03/25 05:56 01/02/25 03:17 01/02/25 01:30 01/02/25 00:02 White Blood Count 6.3 10^3/uL (4.4-10.8) Red Blood Count 5.03 10^6/uL (4.5-5.90) Hemoglobin 14.5 g/dL (13.5-17.5) Hematocrit 42.9 % (41.0-53.0) Mean Corpuscular Volume 85.4 fL (80.0-100.0) Mean Corpuscular Hemoglobin 28.8 pg (28.0-32.0) Mean Corpuscular Hemoglobin Concent 33.7 g/dL (32.0-36.0) Red Cell Distribution Width 13.3 % (11.8-14.3) Platelet Count 224 10^3/uL (140-450) Mean Platelet Volume 7.9 fL (6.9-10.8) Neutrophils (%) (Auto) 42.1 % (37.0-80.0) Lymphocytes (%) (Auto) 46.6 % (10.0-50.0) Monocytes (%) (Auto) 7.0 % (0.0-12.0) Eosinophils (%) (Auto) 3.5 % (0.0-7.0) Basophils (%) (Auto) 0.8 % (0.0-2.0) Neutrophils # (Auto) 2.7 10 ^3/uL (1.6-8.6) Lymphocytes # (Auto) 2.9 10 ^3/uL (0.4-5.4) Monocytes # (Auto) 0.4 10 ^3/uL (0-1.3) Eosinophils # (Auto) 0.2 10 ^3/uL (0-0.8) Basophils # (Auto) 0.1 10 ^3/uL (0-0.2) Nucleated Red Blood Cells 0.1 % Sodium Level 142 mmol/L (136-145) Potassium Level 4.5 mmol/L (3.5-5.1) Chloride Level 110 mmol/L (98-107) Carbon Dioxide Level 25 mmol/L (20-31) Anion Gap 7 (5-15) Blood Urea Nitrogen 16 mg/dL (9-23) Creatinine 1.05 mg/dL (0.700-1.30) Glomerular Filtration Rate Calc 99 mL/min (>90) BUN/Creatinine Ratio 15.2 (10.0-20.0) Serum Glucose 101 mg/dL (74-106) Calcium Level 9.2 mg/dL (8.7-10.4) Total Bilirubin 1.1 mg/dL (0.2-1.0) Aspartate Amino Transferase (AST) 16 U/L (13-40) Alanine Aminotransferase (ALT) 28 U/L (7-40) Alkaline Phosphatase 86 U/L (46-116) Total Protein 7.2 g/dL (5.7-8.2) Albumin 4.6 g/dL (3.2-4.8) Urine RBC 2 /hpf (0 - 3) Urine Microscopic WBC 1 /HPF (0-3) Urine Squamous Epithelial Cells None seen /hpf (<5) Urine Bacteria None seen /hpf (None Seen) Urine Mucus Few (None Seen) Urine Opiates Screen Neg (NEGATIVE) Urine Fentanyl Screen Neg (NEGATIVE) Urine Barbiturates Screen Neg (NEGATIVE) Urine Phencyclidine Screen Neg (NEGATIVE) Urine Amphetamines Screen Neg (NEGATIVE) Urine Benzodiazepines Screen Neg (NEGATIVE) Urine Cocaine Screen Neg (NEGATIVE) Urine Cannabinoids Screen Neg (NEGATIVE) Test 01/01/25 17:00 01/01/25 16:35 01/01/25 16:32 Urine Color Yellow (Yellow) Urine Clarity Clear (Clear) Urine pH 5.5 (5.0-9.0) Urine Specific [place] 1.021 (1.001-1.035) Urine Protein Trace (Negative) Urine Ketones Trace (Negative) Urine Blood 3+ /uL (Negative) Urine Nitrite Negative (Negative) Urine Bilirubin Negative (Negative) Urine Urobilinogen Normal mg/dL (Negative) Urine Leukocyte Esterase Negative /uL (Negative) Urine Glucose Normal mg/dL (Normal) Vitamin D 25-Hydroxy 33.6 ng/mL (30.0-100) Hemoglobin A1c 5.2 % A1C (<5.7) Triglycerides Level 131 mg/dL (< 150) Cholesterol Level 237 mg/dL (< 200) LDL Cholesterol 180 mg/dL (< 100) HDL Cholesterol 38 mg/dL (40-59) Other Laboratory Tests 01/03/25 05:56 Brief Hx & Hospital Course: 29-year-old gentleman admitted to the hospital with right nephrolithiasis and hydronephrosis and hydroureter. Patient was having significant pain. The pain resolved. White count was slightly elevated initially at 11.3. It came down to normal at 6.3 today on day of discharge. GFR 99. Patient is going to be discharged home to follow up with Urology as outpatient. Patient was seen by Urology in the hospital and that was the recommendation Condition at Discharge: Good Final Diagnosis/Problems List Right nephrolithiasis and hydronephrosis Discharge Disposition: Home Discharge Instruct/Medications Diet: See Comment (Drink plenty of fluids) Activity: No Restrictions, As Tolerated Follow Up/Referral: Urology within one or two weeks Establish with PCP and follow up within one week Medications: Cipro 250 mg twice a day for three days. Flomax 0.4 mg daily Tylenol fcib-idx-jlbxrls for pain and ibuprofen lnlv-viz-krsyfac for pain with meals. Discharge Statement: "Patient was advised to return to the ER or call 911 if any headaches, dizziness, shortness of breath, chest pain, abdominal pain, bleeding, fevers, or worsening of medical condition. Patient was counseled about treatment plan, medications, possible side effects, patientverbalized understanding. All questions were answered to the best of my ability. This discharge took greater then 30 minutes in planning, reviewing documentation, counseling the patient, and discussing with other team members." ASSESSMENT ASSESSMENT Assessment Date of Service: January 03, 2025 Billing Provider: SYD HOBSON MD Common Visit Codes: [id number] DISCH DAY <30MIN SYD HOBSON MD January 03, 2025 13:52
[2025-01-03] MEDS ORDERED: CIPR250T3 PO (13:56)
[2025-01-03] MEDS ORDERED: TAMS-35 PO (13:56)
[2025-01-03 13:59] VITALS: BP 138/88; PULSE 71; RESP 18; TEMP 98.1; O2SAT 98
== END 2025-01-03 14:30 | disposition home or self-care (01) | DRG 465 ==
LOC: ER 16:05 → OVERFLOW 22:27 → EAST 01-02 03:40
PROVIDERS: ATTEND Physician Assistant
DX: N13.2 Hydronephrosis with renal and ureteral calculous obstruction (principal); E11.9 Type 2 diabetes mellitus without complications; E66.811 Obesity, class 1; E78.5 Hyperlipidemia, unspecified; Z68.31 Body mass index [BMI] 31.0-31.9, adult; Z79.899 Other long term (current) drug therapy
CPT/HCPCS: 36415; 74176; 80048; 80053; 80061; 80307; 81001; 81015; 82306; 83036; 85025; 87086; 96372; G0378; J1885